=== PATIENT | male | born 1965 | race Caucasian/White ===

== ENCOUNTER 2023-12-30 14:53 | Outpatient (RCR) | payer OTHER, SELFPAY ==
--- NOTE | 2023-12-30 16:12 | OPREHPOC ---
Outpatient Therapy Plan of Care This is a Multidisciplinary Plan of Care that may contain components documented by all disciplines (PT, OT, and ST.) PT Problem 1 PT Problem #1 Knowledge Deficit PT Goal 1 Goal 1. independent and compliant with HEP Target Visit 3 PT Problem 2 PT Problem #2 Pain PT Goal 1 Goal 1. patient to report no pain in in the upper back in the last week Target Visit 6 PT Problem 3 PT Problem #3 Impaired Strength PT Goal 1 Goal 1. 5/5 bilateral shoulder IR Target Visit 6 PT Problem 4 PT Problem #4 Impaired Functional Mobil PT Goal 1 Goal 1. NDI to display 0% functional deficits 2. patient to report no pain with palpation and PA glides of the thoracic spine 3. patient to return to normal sleeping habits and work/daily activities Target Visit 6
--- NOTE | 2023-12-30 16:13 | PTOPEVAL1 ---
Assessment and note entered by JT File, PT Evaluation Information Assessment Status Evaluation Diagnosis neck and upper back pain, trap strain Onset 12/01/23 Subjective Information patient reports he was going threw a door on a scooter. he reports a garage style door hit him and gave him a sort of whiplash. he reports this happened at work at [employer]. 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 he reports he is still working. he reports the neck pain is nagging. he reports he has increased pain after sleeping. he reports it is worse in the morning. he reports heat does loosen up his neck. he reports the xray was negative. Reported Pain Level Pain Score 2,2: Self Report Assessment PT Clinical Summary mr. edwards is a 58 yo man who presents to skilled PT services for an injury incurred to the neck and upper back at work. he presents this date with symptoms of a whiplash type injury affecting the upper thoracic spine in the T2-T4 region the most. he presents with deficits in cervical rotation, pain with palpation/PA glides, and increased pain with activity in the upper back. he would benefit from continued skilled PT to improve his objective /functional deficits and return to his prior level work performance, quality of life, and functional activity performance without deficits Plan of Care Interventions Electrical Stimulation,Hot Pack/Cold Pack,Manual Therapy,Mechanical Traction,Neuro Re-education, Patient/Caregiver Educati,Therapeutic Activities, Therapeutic Exercise PT Services Indicated Yes Treatment Frequency and 2x weekly for 6 visits Duration These treatments will address the objective and functional deficits as defined above. The patient will be advanced safely and appropriately in order for the patient to progress towards his/her prior level of function. Additional exercises will be introduced and as well as a comprehensive home exercise program upon discharge, if needed, ?to ensure carryover of functional gains achieved in the clinic. This treatment plan has been reviewed and agreement upon by the patient.
--- NOTE | 2024-01-18 17:44 | OPREHPOC ---
Outpatient Therapy Plan of Care This is a Multidisciplinary Plan of Care that may contain components documented by all disciplines (PT, OT, and ST.) PT Problem 1 PT Problem #1 Knowledge Deficit PT Goal 1 Goal 1. independent and compliant with HEP Target Visit 3 Progress Met PT Problem 2 PT Problem #2 Pain PT Goal 1 Goal 1. patient to report no pain in in the upper back in the last week Target Visit 6 Progress Not Met PT Problem 3 PT Problem #3 Impaired Strength PT Goal 1 Goal 1. 5/5 bilateral shoulder IR Target Visit 6 Progress Met PT Problem 4 PT Problem #4 Impaired Functional Mobil PT Goal 1 Goal 1. NDI to display 0% functional deficits 2. patient to report no pain with palpation and PA glides of the thoracic spine 3. patient to return to normal sleeping habits and work/daily activities Target Visit 6 Progress Not Met
--- NOTE | 2024-01-18 17:44 | PTOPREEVAL ---
Assessment and note entered by Sharon Doss DPT Evaluation Information Assessment Status Evaluation Diagnosis neck and upper back pain, trap strain Onset 12/01/23 Subjective Information patient reports his neck pain and upper back pain is about the same. he states he continues to have difficulty with sleep. he reports he has been compliant with HEP. he reports after today he is to call MD regarding next steps in POC Reported Pain Level Pain Score 2,2: Self Report Assessment PT Clinical Summary Mr. Clay has attended 6 visits of skilled PT with good progression towards goals. He has met goals for strength and HEP but has not met goals for, functional outcome or sleeping. He continues to report disturbed sleep due to neck and upper back pain. He is to call MD regarding next steps in POC . He will be continued per MD recommendations. Plan of Care Interventions Electrical Stimulation,Hot Pack/Cold Pack,Manual Therapy,Mechanical Traction,Neuro Re-education, Patient/Caregiver Educati,Therapeutic Activities, Therapeutic Exercise PT Services Indicated Yes Treatment Frequency and continue per MD recommendations Duration These treatments will address the objective and functional deficits as defined above. The patient will be advanced safely and appropriately in order for the patient to progress towards his/her prior level of function. Additional exercises will be introduced and as well as a comprehensive home exercise program upon discharge, if needed, ?to ensure carryover of functional gains achieved in the clinic. This treatment plan has been reviewed and agreement upon by the patient.
--- NOTE | 2024-07-11 11:08 | PCPTNOTE ---
Pt was last seen on 01/18/24 when a progress note was performed. He has not followed up after that visit. He is discharged. -Marly Álvarez, PT
== END 2024-01-18 23:59 | disposition home or self-care (01) ==
LOC: CHSPT 14:53
PROVIDERS: Visit Provider Internal Medicine
DX: M47.892 Other spondylosis, cervical region (principal); S46.812D Strain of other muscles, fascia and tendons at shoulder and upper arm level, left arm, subsequent encounter; S13.4XXD Sprain of ligaments of cervical spine, subsequent encounter
CPT/HCPCS: 97012; 97014; 97110; 97140; 97161; 97530; G0283